=== PATIENT | female | born 1985 | race Two or more races ===

== ENCOUNTER 2017-08-20 10:41 | Inpatient (IN) | payer OTHER ==
[~2017-08-20] VITALS: Ht 162.6 cm; Wt 86.8 kg
[~2017-08-20 10:41] MED LIST: IBUP-1223 PO; OXYC-302 PO; PREN1TAB27 PO
[2017-08-20] MEDS ORDERED: OXYTOCIN 30U/ 0.9% NaCL 500ML 500 ML IV ONE (11:06)
[2017-08-20] MEDS ORDERED: OXYTOCIN 30U/ 0.9% NaCL 500ML 500 ML ONE ×2 (11:26→15:31)
[2017-08-20] MEDS: LACTATED RINGERS 1,000 ML IV SCH ×2 (11:28→17:00)
[2017-08-20] MEDS ORDERED: ONDANSETRON 2MG/ML, 2ML IVPush PRN (11:30)
[2017-08-20] MEDS ORDERED: FENTANYL PF 100 MCG/2ML IV PRN (11:30)
[2017-08-20] MEDS ORDERED: FENTANYL PF 100 MCG/2ML IVPush PRN (11:30)
[2017-08-20] MEDS ORDERED: PENICILLIN GK 5,000,000 UNITS in DEXTROSE 5% 100 ML IVPB ONE (11:30)
[2017-08-20 11:32] VITALS: BP 109/66
[2017-08-20 11:45] LABS: BASOPHILS % (AUTO) 0 % (0-1); EOSINOPHILS % (AUTO) 1 % (1-7); LYMPHOCYTES # (AUTO) 1.23 x10^3/uL (1-3.4); LYMPHOCYTES % (AUTO) 13 % (22-44); MD NO; MEAN CORPUSCULAR HEMOGLOBIN 29.3 pg (27.0-34.8); MEAN CORPUSCULAR HGB CONC 33.2 g/dL (32.4-35.8); MEAN CORPUSCULAR VOLUME 88.3 fL (80-100); MEAN PLATELET VOLUME 10.8 fL (7.4-10.4); MONOCYTES # (AUTO) 0.68 x10^3/uL (0.2-0.8); MONOCYTES % (AUTO) 7 % (2-9); NEUTROPHILS # (AUTO) 7.81 x10^3/uL (1.8-6.8); NEUTROPHILS % (AUTO) 80 % (42-75); PLATELET COUNT 141 x10^3/uL (130-400); RED CELL DISTRIBUTION WIDTH 14.8 % (9.6-15.2)
[2017-08-20] MEDS ORDERED: NEWBORN KIT ONE (12:00)
[2017-08-20] MEDS ORDERED: OXYTOCIN 30U/ 0.9% NaCL 500ML 500 ML IV SCH (14:13)
[2017-08-20] MEDS ORDERED: IBUPROFEN 600 MG TABLET ONE (14:18)
[2017-08-20] MEDS: IBUPROFEN 600 MG TABLET PO PRN ×2 (14:19→20:22)
[2017-08-20] MEDS ORDERED: OXYcodone/APAP 5/325MG TABLET PO PRN ×2 (14:30)
[2017-08-20] MEDS ORDERED: CALCIUM CARBONATE 500 MG TAB.CHEW PO PRN (14:30)
[2017-08-20] MEDS ORDERED: MISOPROSTOL 200 MCG TABLET PR PRN (14:30)
[2017-08-20] MEDS ORDERED: ONDANSETRON 2MG/ML, 2ML IV PRN (14:30)
[2017-08-20] MEDS ORDERED: DIPH,PERTUSS(ACELL),TET VAC/PF NC IM-VACC PRN (14:30)
[2017-08-20] MEDS ORDERED: MAGNESIUM HYDROXIDE 8%, 30ML UDC PO PRN (14:30)
[2017-08-20] MEDS ORDERED: RHOGAM FROM BLOOD BANK 1 NOTE EA IM/IV ONE (14:30)
[2017-08-20] MEDS ORDERED: MEASLES,MUMPS&RUBELLA VACC/PF 0.5 ML SQ PRN (14:30)
[2017-08-20] MEDS ORDERED: PENICILLIN GK 2,500,000 UNITS in DEXTROSE 5% 100 ML IVPB SCH (15:30)
[2017-08-20 16:10] VITALS: BP 114/61
[2017-08-20 19:30] VITALS: BP 109/69
[2017-08-20 22:24] LABS: BASOPHILS # (AUTO) 0.03 x10^3/uL (0-0.1); BASOPHILS % (AUTO) 0 % (0-1); EOSINOPHILS # (AUTO) 0.09 x10^3/uL (0-0.4); EOSINOPHILS % (AUTO) 1 % (1-7); LYMPHOCYTES # (AUTO) 1.42 x10^3/uL (1-3.4); LYMPHOCYTES % (AUTO) 13 % (22-44); MD NO; MEAN CORPUSCULAR HEMOGLOBIN 29.6 pg (27.0-34.8); MEAN CORPUSCULAR HGB CONC 33.3 g/dL (32.4-35.8); MEAN CORPUSCULAR VOLUME 88.9 fL (80-100); MEAN PLATELET VOLUME 10.9 fL (7.4-10.4); MONOCYTES # (AUTO) 0.86 x10^3/uL (0.2-0.8); MONOCYTES % (AUTO) 8 % (2-9); NEUTROPHILS # (AUTO) 8.74 x10^3/uL (1.8-6.8); NEUTROPHILS % (AUTO) 78 % (42-75); PLATELET COUNT 135 x10^3/uL (130-400); RED BLOOD COUNT 3.98 x10^6/uL (3.82-5.3); RED CELL DISTRIBUTION WIDTH 14.8 % (9.6-15.2)
[2017-08-21 00:25] VITALS: BP 101/65
[2017-08-21] MEDS: IBUPROFEN 600 MG TABLET PO PRN ×3 (03:51→15:27)
[2017-08-21 04:00] VITALS: BP 105/62
[2017-08-21 07:45] VITALS: BP 114/74
[2017-08-21] MEDS: PRENATAL VIT/IRON/FA 1 EACH TABLET PO SCH (09:33)
[2017-08-21] MEDS: DOCUSATE 100 MG CAPSULE PO PRN (09:33)
[2017-08-21 12:45] VITALS: BP 111/72
[2017-08-21 21:30] VITALS: BP 118/81
[2017-08-22] MEDS: DOCUSATE 100 MG CAPSULE PO PRN (07:08)
[2017-08-22] MEDS: PRENATAL VIT/IRON/FA 1 EACH TABLET PO SCH (07:08)
[2017-08-22 07:10] VITALS: BP 118/79
[2017-08-22] MEDS ORDERED: IBUP-1222 PO (07:54)
== END 2017-08-22 14:52 | disposition home or self-care (01) | DRG 775 ==
LOC: LDIP 10:41 → 2NW 15:54
PROVIDERS: ADMIT Obstetrics & Gynecology; ATTEND Obstetrics & Gynecology
PROC: 10E0XZZ Delivery of Products of Conception, External Approach (ICD-10-PCS; principal; 2017-08-20)
DX: O99.824 Streptococcus B carrier state complicating childbirth (principal); G43.909 Migraine, unspecified, not intractable, without status migrainosus; O99.354 Diseases of the nervous system complicating childbirth; O62.3 Precipitate labor; Z37.0 Single live birth; Z3A.39 39 weeks gestation of pregnancy; Z82.3 Family history of stroke; Z82.49 Family history of ischemic heart disease and other diseases of the circulatory system; Z83.3 Family history of diabetes mellitus; Z83.42 Family history of familial hypercholesterolemia; Z23 Encounter for immunization
CPT/HCPCS: 36415; 85025; 86850; 86900; 90715; J2540; J2590; J7120